=== PATIENT | male | born 1955 | race Caucasian/White ===

== ENCOUNTER → 2024-07-14 13:33 | Outpatient (REF) | payer OTHER, SELFPAY | LOC: HWRAD 13:33 | PROVIDERS: ATTENDING PHYSICIAN Internal Medicine Critical Care Medicine; FAMILY PHYSICIAN Family Medicine | DX: R05.3 Chronic cough (principal); R06.02 Shortness of breath | CPT/HCPCS: 71250 ==

== ENCOUNTER → 2024-10-12 07:37 | Outpatient (REF) | payer OTHER, SELFPAY | LOC: HWRAD 07:37 | PROVIDERS: ATTENDING PHYSICIAN Student in an Organized Health Care Education/Training Program | DX: R22.41 Localized swelling, mass and lump, right lower limb (principal) | CPT/HCPCS: 76882 ==

== ENCOUNTER → 2025-08-27 11:01 | Outpatient (REF) | payer OTHER, SELFPAY | LOC: HWRAD 11:01 | PROVIDERS: ATTENDING PHYSICIAN Internal Medicine; FAMILY PHYSICIAN Family Medicine | DX: R09.82 Postnasal drip (principal) | CPT/HCPCS: 70486 ==